=== PATIENT | female | born 1960 | race Caucasian/White ===

== ENCOUNTER 2019-03-17 10:58 | Inpatient (IN) ==
[2019-03-17] MEDS ORDERED: NS 1,000 ML IV ONE (12:37)
[2019-03-17] MEDS ORDERED: ASPIRIN PO ONE (12:37)
--- NOTE | 2019-03-17 13:29 | EKG Report ---
Test Performed on : 03/17/2019 1:04:46 PM Test Reason : stroke symptoms Blood Pressure : / mmHG Vent. Rate : 070 BPM Atrial Rate : 070 BPM P-R Int : 132 ms QRS Dur : 090 ms QT Int : 448 ms P-R-T Axes : 015 018 008 degrees QTc Int : 483 ms Normal sinus rhythm. Prolonged QT Abnormal ECG When compared with ECG of 18-SEP-2018 13:02, No significant change was found Unconfirmed Result
[2019-03-17 13:30] LABS: UR AMPHETAMINES QUAL NONE DETECTED (NONE DETECT); UR BARBITUATES QUAL NONE DETECTED (NONE DETECT); UR BENZODIAZEPIN QUAL NONE DETECTED (NONE DETECT)
[2019-03-17 13:31] LABS: UR CANNABINOIDS QUAL NONE DETECTED (NONE DETECT); UR COCAINE QUAL NONE DETECTED (NONE DETECT); UR METHADONE QUAL NONE DETECTED (NONE DETECT); UR METHAMPHETAMINE QUAL NONE DETECTED (NONE DETECT); UR OPIATES QUAL NONE DETECTED (NONE DETECT); UR OXYCODONE QUAL NONE DETECTED (NONE DETECT); UR PCP QUAL NONE DETECTED (NONE DETECT); UR PROPOXYPHENE QUAL NONE DETECTED (NONE DETECT); UR TCA QUAL NONE DETECTED (NONE DETECT)
[2019-03-17 13:38] LABS: BILIRUBIN URINE NEGATIVE (NEGATIVE); BLOOD URINE NEGATIVE (NEGATIVE); GLUCOSE URINE NEGATIVE (NEGATIVE); KETONE URINE NEGATIVE (NEGATIVE); PROTEIN URINE TRACE mg/dL (NEGATIVE)
[2019-03-17 13:39] LABS: AGAP 15; ALBUMIN 4.2 g/dL (3.5-5.0); ALKALINE PHOSPHATASE 116 U/L (32-104); BUN 19 mg/dL (8-22); CALCIUM 8.5 mg/dL (8.8-10.2); CHLORIDE 107 mmol/L (98-107); CLARITY CLEAR (CLEAR); COLOR YELLOW; COSMO 286; CREATININE 0.7 mg/dL (0.5-0.9); ESTIMATED GFR > 60; GLUCOSE 108 mg/dL (70-104); GOT 23 U/L (10-30); GPT 15 U/L (10-36); LEUKOCYTES URINE TRACE (NEGATIVE); NITRITE URINE NEGATIVE (NEGATIVE); SODIUM 142 mmol/L (136-145); TCO2 20 mmol/L (25-35); TOTAL PROTEIN 6.7 g/dL (6.3-8.3); UROBILINOGEN URINE NORMAL
[2019-03-17 13:42] LABS: BASO# 0.01 X1000 (0.0-0.2); BASO% 0.3 % (0.0-0.8); EOS# 0.31 X1000 (0.0-0.7); EOS% 8.6 % (0.0-10.0); HEMATOCRIT 40.5 % (37.0-47.0); HEMOGLOBIN 13.8 g/dL (12.0-16.0); IMM GRAN# 0.01 X1000 (0.0-0.04); IMM GRAN% 0.3 % (0.0-0.5); LYMPH# 0.98 X1000 (1.2-3.4); LYMPH% 27.3 % (20.5-51.1); MCH 33.3 PG (27-31); MCHC 34.1 g/dL (33-37); MCV 97.6 FL (81-99); MONO% 8.4 % (1.7-9.3); MPV 11.8 FL (7.4-10.4); NEUT# 1.98 X1000 (1.4-6.5); NEUT% 55.1 % (42.2-75.2); PLT 121 X1000 (130-400); RBC 4.15 XMIL (4.2-5.4); RDW 12.4 % (11.5-14.5); WBC 3.59 X1000 (4.8-10.8)
[2019-03-17 13:43] LABS: URINE BACTERIA 1+ /HFP; URINE CAST NONE SEEN /LPF; URINE CRYSTAL NONE SEEN /HPF; URINE EPITHELIAL CELLS <10 /HPF (<10); URINE RBC <10 /HPF (<10); URINE SOURCE CLEAN CATCH; URINE WBC <10 /HPF (<10); URINE YEAST NONE SEEN /HPF
[2019-03-17 13:46] LABS: INR 0.89; PROTIME 12.5 Seconds (11.0-16.0)
[2019-03-17 13:47] LABS: PTT 25.2 Seconds (22.3-41.8)
--- NOTE | 2019-03-17 14:00 | Diag Imaging Result Doc PS360 ---
CHEST-PORTABLE - 03/17/2019 INDICATION: stroke symptoms COMPARISON: 08/26/2018 FINDINGS: There is some faint infiltrate in the right lung base. Heart size and pulmonary vascularity is normal. No pneumothorax or large pleural effusion. IMPRESSION: Faint right basilar infiltrate concerning for pneumonia. Electronically signed by Haris Ledbetter 03/17/2019 1:58 PM
--- NOTE | 2019-03-17 14:25 | Diag Imaging Result Doc PS360 ---
CT HEAD W/O CONTRAST - 03/17/2019 INDICATION: left sided weakness, right facial droop COMPARISON: 05/07/2018 FINDINGS: The ventricles and sulci are normal in size and contour. No intracranial mass or hemorrhage. The skull is intact. The sinuses mastoids and middle ears are clear. IMPRESSION: Negative exam. This exam was performed using automated exposure control, adjustment of mA or kV according to patient size, and/or use of iterative reconstruction technique Electronically signed by Haris Ledbetter 03/17/2019 2:23 PM
[2019-03-17] MEDS ORDERED: ROCEPHIN 1 GM in NS 50 ML IV ONE (14:39)
[2019-03-17] MEDS ORDERED: TUMS EXTRA STRENGTH PO ONE (14:39)
--- NOTE | 2019-03-17 14:45 | PROVIDER DOCUMENTATION ---
This chart was entered by Mary Covarrubias Scribe, acting as scribe for Chip Jc MD. HPI-Neurological Disorder - General Chief Complaint: General Adult Stated Complaint: HEADACHE, CANT EAT Time Seen by Provider: 03/17/19 12:28 Source: patient Allergies/Adverse Reactions: Patient Allergies Allergy/AdvReac Type Severity Reaction Status Date / Time bupropion [From Wellbutrin] Allergy Unknown Verified 09/23/18 15:31 codeine Allergy Unknown Verified 09/23/18 15:31 heparin Allergy Unknown Verified 09/23/18 15:31 hydrocodone Allergy Unknown Verified 09/23/18 15:31 iron Allergy Unknown Verified 09/23/18 15:31 oxycodone HCl * Allergy Unknown Verified 09/23/18 15:31 [From Percocet] oxycodone terephthalate * Allergy Unknown Verified 09/23/18 15:31 [From Percodan] Penicillins Allergy Unknown Verified 09/23/18 15:31 pentazocine [From Talwin] Allergy RASH Verified 03/17/19 12:22 Sulfa (Sulfonamide Allergy Unknown Verified 09/23/18 15:31 Antibiotics) Home Medications: Home Medication List Medication Instructions Recorded Confirmed Last Taken Type Aspirin 81 mg PO DAILY 01/27/16 03/17/19 08/26/18 History Albuterol Sulfate [Ventolin Hfa] 18 gm IH PRN PRN 05/15/18 03/17/19 4 Weeks Ago History ~07/29/18 Furosemide [Lasix] 20 mg PO PRN PRN 05/15/18 03/17/19 08/25/18 History Sertraline [Zoloft] 50 mg PO DAILY 05/15/18 03/17/19 08/25/18 History Tizanidine [Zanaflex] 4 mg PO QHS 05/15/18 03/17/19 08/25/18 History Esomeprazole [Nexium] 1 tab PO PRN PRN 08/26/18 03/17/19 08/25/18 History Sulindac 1 tab PO BID 08/26/18 03/17/19 1 Day Ago History ~08/25/18 - History of Present Illness-Neuro Nature of Presenting Problem: Patient is a 58 year old female who presents to the ED with stroke like symptoms. States headache, difficulty swallowing and weakness to LUE and LLE. Reports symptoms started 5 days ago. History of CVA 15 years ago. Severity: reports: mild Onset/Duration: reports: 5 days ago Timing: reports: still present Context: reports: other (weakness and impaired swallowing) Character of Deficits: reports: new weakness (LUE and LLE), impaired swallowing New weakness or altered sensation location:: reports: LUE, LLE Associated Symptoms: reports: headache Similar Symptoms Previously?: Yes Recently seen or treated by another doctor?: No Review of Systems - Adult - REVIEW OF SYSTEMS - ADULT Constitutional: reports: no symptoms reported. denies: chills, fever, fatique Eyes: reports: no symptoms reported Ears, Nose, Mouth & Throat: reports: see HPI, other (difficulty swallowing). denies: ear pain, nose pain, throat pain Cardiovascular: reports: no symptoms reported Respiratory: reports: no symptoms reported Gastrointestinal: reports: no symptoms reported Genitourinary: reports: no symptoms reported Musculoskeletal: reports: no symptoms reported Integumentary: reports: no symptoms reported Neurological: reports: see HPI, headache/migraines (FOSTER), other (weakness to LUE and LLE). denies: dizziness/vertigo, seizure, syncope Psychiatric: reports: no symptoms reported Endocrine: reports: no symptoms reported Hematologic/Lymphatic: reports: no symptoms reported Allergic/Immunologic: reports: no symptoms reported All Other Systems: Reviewed and Negative Past History - Adult - PAST MEDICAL HISTORY-ADULT Review of Records: reports: Old Records Reviewed, Social history reviewed & non- contributory. Major Childhood Illnesses: reports: denies history Cardiovascular: reports: blood clots, HTN, hyperlipidemia Respiratory: reports: denies history Gastrointestinal: reports: denies history Obstetrical/Gynecological: reports: denies history Genitourinary: reports: kidney disease Musculoskeletal: reports: denies history Neurological: reports: CVA, headaches/migraines Psychiatric: reports: denies history Endocrine/Immune: reports: Diabetes, thyroid disorder Other Conditions: reports: denies history - PRIOR SURGERIES/PROCEDURES Surgical/Procedure History: reports: appendectomy, cholecystectomy, hysterectomy , BTL, , tonsillectomy, hernia repair, gastric bypass - IMMUNIZATION STATUS Childhood Immunizations: See Nurse Assessment Flu Vaccine: See Nurse Assessment - FAMILY HISTORY Family History: reviewed, not pertinent - SOCIAL HISTORY Smoking: denies Substance Use: denies Living Situation: family Physical Exam- Neurological - Physical Exam-Neuro Initial Vital Signs Reviewed: Yes General Appearance: alert, no apparent distress. negative: lethargic HENMT: normocephalic/atraumatic, moist mucous membranes. negative: angioedema Head Injury: no evidence of injury. negative: active bleeding, ecchymosis, lacerations Respiratory: chest non-tender, lungs clear, normal breath sounds. negative: crackles, rales Cardiovascular: normal peripheral pulses, regular rate, rhythm. negative: tachycardia Abdominal Exam: normal bowel sounds, non tender, soft. negative: distended, rigid Extremity: non-tender, normal inspection. 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 negative: abnormal speech Motor/Sensory: weak motor strength LUE, weak motor strength LLE. negative: sensory deficit Neurologic: facial droop (right), focal weakness (LUE and LLE). negative: aphasia, sensory deficit Integumentary: normal color, normal turgor, warm/dry. negative: diaphoresis, ecchymosis, pallor, rash Psych/Mental Status: normal mood/affect, oriented x 3. negative: anxious Progress - PLAN OF CARE/RESULTS Progress/Plan/Lab Results: Vital Signs - 8 hr 03/17/19 11:10 Temperature 98.4 F Pulse Rate 91 H Respiratory Rate 18 Blood Pressure 140/83 O2 Sat by Pulse Oximetry 96 Laboratory Results - last 24 hr 03/17/19 03/17/19 03/17/19 13:00 13:00 13:00 WBC 3.59 L RBC 4.15 L Hgb 13.8 Hct 40.5 MCV 97.6 MCH 33.3 H MCHC 34.1 RDW Std Deviation 12.4 Plt Count 121 L MPV 11.8 H Immature Gran % (Auto) 0.3 Neut % (Auto) 55.1 Lymph % (Auto) 27.3 [place] % (Auto) 8.4 Eos % (Auto) 8.6 Baso % (Auto) 0.3 Immature Gran # (Auto) 0.01 Neut # (Auto) 1.98 Lymph # (Auto) 0.98 L [place] # (Auto) 0.30 Eos # (Auto) 0.31 Baso # (Auto) 0.01 PT 12.5 INR 0.89 PTT (Actin FS) 25.2 Sodium 142 Potassium 4.0 Chloride 107 Carbon Dioxide 20 L Anion Gap 15 BUN 19 Creatinine 0.7 Estimated GFR/1.73 m2 > 60 BUN/Creatinine Ratio 27 Glucose 108 H Calculated Osmolality 286 Calcium 8.5 L Total Bilirubin 0.50 AST 23 ALT 15 Alkaline Phosphatase 116 H Total Protein 6.7 Albumin 4.2 Globulin 3.0 Albumin/Globulin Ratio 2.0 Urine Source Urine Color Urine Clarity Urine pH Ur Specific [place] Urine Protein Urine Ketones Urine Blood Urine Nitrite Urine Bilirubin Urine Urobilinogen Urine Microscopic RBC Urine WBC Urine Microscopic WBC Ur Epithelial Cells Urine Crystals Urine Bacteria Urine Casts Urine Yeast Urine Glucose Urine Opiates Screen Ur Oxycodone Screen Urine Methadone Screen U Propoxyphene Qual Ur Barbituates Screen Ur Tricyclics Screen Ur Phencyclidine Scrn Ur Amphetamines Screen U Methamphetamines Scrn U Benzodiazepines Scrn Urine Cocaine Screen U Cannabinoids Screen 03/17/19 03/17/19 13:00 13:00 WBC RBC Hgb Hct MCV MCH MCHC RDW Std Deviation Plt Count MPV Immature Gran % (Auto) Neut % (Auto) Lymph % (Auto) [place] % (Auto) Eos % (Auto) Baso % (Auto) Immature Gran # (Auto) Neut # (Auto) Lymph # (Auto) [place] # (Auto) Eos # (Auto) Baso # (Auto) PT INR PTT (Actin FS) Sodium Potassium Chloride Carbon Dioxide Anion Gap BUN Creatinine Estimated GFR/1.73 m2 BUN/Creatinine Ratio Glucose Calculated Osmolality Calcium Total Bilirubin AST ALT Alkaline Phosphatase Total Protein Albumin Globulin Albumin/Globulin Ratio Urine Source CLEAN CATCH Urine Color YELLOW Urine Clarity CLEAR Urine pH 5.0 Ur Specific [place] 1.020 Urine Protein TRACE A Urine Ketones NEGATIVE Urine Blood NEGATIVE Urine Nitrite NEGATIVE Urine Bilirubin NEGATIVE Urine Urobilinogen NORMAL Urine Microscopic RBC <10 Urine WBC TRACE A Urine Microscopic WBC <10 Ur Epithelial Cells <10 Urine Crystals NONE SEEN Urine Bacteria 1+ Urine Casts NONE SEEN Urine Yeast NONE SEEN Urine Glucose NEGATIVE Urine Opiates Screen NONE DETECTED Ur Oxycodone Screen NONE DETECTED Urine Methadone Screen NONE DETECTED U Propoxyphene Qual NONE DETECTED Ur Barbituates Screen NONE DETECTED Ur Tricyclics Screen NONE DETECTED Ur Phencyclidine Scrn NONE DETECTED Ur Amphetamines Screen NONE DETECTED U Methamphetamines Scrn NONE DETECTED U Benzodiazepines Scrn NONE DETECTED Urine Cocaine Screen NONE DETECTED U Cannabinoids Screen NONE DETECTED Orders Category Date Time Status Cardiac Monitoring DIRECTED Care 03/17/19 12:35 Active Finger Stick Blood Sugar (ED) DIRECTED Care 03/17/19 12:35 Active Saline Loc NOW Care 03/17/19 12:35 Active CHEST-PORTABLE [RAD] Stat Exams 03/17/19 12:[address] HEAD W/O CONTRAST [CT] Stat Exams 03/17/19 14:00 Completed CBC WITH ELECTRONIC DIFF [HEME] Stat Lab 03/17/19 13:00 Completed COMPREHENSIVE METABOLIC PANEL [CHEM] Stat Lab 03/17/19 13:00 Completed PROTIME WITH INR [COAG] Stat Lab 03/17/19 13:00 Completed PTT [COAG] Stat Lab 03/17/19 13:00 Completed TROPONIN T Stat Lab 03/17/19 13:[address] W/POSS RFLX CULT [URINALYSIS] Stat Lab 03/17/19 13:00 Completed URINE CULTURE [RM] Routine Lab 03/17/19 13:43 Ordered URINE DRUG SCREEN [address] Stat Lab 03/17/19 13:00 Completed 0.9% Sodium Chloride Inj [Ns] 1,000 ml Med 03/17/19 12:37 Discontinued IV 999 mls/hr Aspirin Med 03/17/19 12:37 Discontinued 325 mg PO NOW ONE Calcium Carbonate [Tums Extra Strength] Med 03/17/19 14:39 Once 1,500 mg PO NOW ONE Rocephin 1 gm/Ns IV Now Med 03/17/19 14:39 Ordered CefTRIAXONE [Rocephin] 1 gm 0.9% Sodium Chloride Inj [Ns] 50 ml IV NOW EKG [EKG] Stat Ther 03/17/19 12:35 Draft Result Diagrams: 03/17/19 13:00 03/17/19 13:00 - REASSESSMENT Reassessment #1 Time Reassessed: 14:40 Status: unchanged (given 1000ml ov NS bolus, ASA 325mg po, IV rocephin for UTI, po TUMS) - EKG 1 Time of EKG reading by physician:: 13:04 EKG Read and Signed by:: Chip Jc EKG Interpretation (*Must complete 3 of following elements*): Abnormal Rate: 70 Rhythm: normal sinus rhythm [place]: normal [place] Interval: normal Comments: prolonged QT - XRAY 1 XRAY Study: Chest Impression: See EMR Report ( CHEST-PORTABLE - 03/17/2019 INDICATION: stroke symptoms COMPARISON: 08/26/2018 FINDINGS: There is some faint infiltrate in the right lung base. Heart size and pulmonary vascularity is normal. No pneumothorax or large pleural effusion. IMPRESSION: Faint right basilar infiltrate concerning for pneumonia. Electronically signed by Haris Ledbetter 03/17/2019 1:58 PM 03/17/19 1358 Interpreting Physician: Haris Ledbetter MD Dictated Date/Time: 03/17/19 1357 cc: Chip Jc MD; Reina Del Toro MD) - CT/MRI 1 CT Study: Head Impression: See EMR Report ( CT HEAD W/O CONTRAST - 03/17/2019 INDICATION: left sided weakness, right facial droop COMPARISON: 05/07/2018 FINDINGS: The ventricles and sulci are normal in size and contour. No intracranial mass or hemorrhage. The skull is intact. The sinuses mastoids and middle ears are clear. IMPRESSION: Negative exam. This exam was performed using automated exposure control, adjustment of mA or kV according to patient size, and/or use of iterative reconstruction technique Electronically signed by Haris Ledbetter 03/17/2019 2:23 PM 03/17/19 1423 Interpreting Physician: Haris Ledbetter MD Dictated Date/Time: 03/17/19 1422 cc: Chip Jc MD; Reina Del Toro MD) - CONSULTS/PCP/HOSPITALIST Notification #1 *Consult/PCP/Hospitalist*: Dr. Fiore Time Discussed: 14:32 Reason/Comments: Dr. Jc consulted with Dr. Fiore about patient Consult Disposition: Will see in ED, Admit Departure - Departure Date of Disposition Decision: 03/17/19 Time of Disposition Decision: 14:32 DIAGNOSIS: Cerebrovascular accident (CVA) with left hemiparesis, Hypocalcemia UTI (urinary tract infection) Qualifiers: Urinary tract infection type: acute cystitis Hematuria presence: without hematuria Qualified Code(s): N30.00 - Acute cystitis without hematuria Disposition: ADMITTED INPATIENT 09 Certified Medical Emergency: Emergent Condition: Stable Referrals and Follow-Ups: Reina Del Toro MD [Primary Care Provider] - - Critical Care Note This patient required my direct & personal management of CC.: No Attestation - Physician/ DAMIR Attestation Patient care was provided by Advanced Practice Provider:: No The physician spent face to face time with patient:: Yes Advanced Practice Provider documentation review:: Supervising physician onsite and consulted in the evaluation and care of this patient. The physician did have a face to face encounter with the patient. - NIH Stroke Scale Level of Consciousness: 0-Alert LOC Questions (ask month and age): 0-Answers Both Correctly LOC Commands (ask to open & close eyes;make a fist, let go): 0-Obeys Both Correctly Best Gaze (horizontal eye movement): 0-Normal Visual (use finger movement, counting or visual threat): 0-No Visual Loss Facial Palsy (show teeth or raise eyebrows & close eyes tght: 1-Minor Paralysis Motor Function-left arm: 1-Drift Motor Function-right arm: 0-Normal Motor Function-left le-Drift Motor Function-right le-Normal Limb Ataxia(twimfn-[id number]-[id number], or heel to zaman): 0-No Ataxia Sensory(pin prick to face,arms,trunk,legs-compare side/side): 0-No Ataxia Best Language(name item/read sentence.Ex-Down to Earth): 0-No Aphasia Dysarthria(Pt read words or say words Ex.Mama,Tip-Top,Thanks: 0-Normal Articulation Extinction and Inattention: 0-Normal NIH Total Score: 3 Stroke tPA Guidelines - Inclusion Criteria for IV tPA 18 years old or older: Yes Ischemic stroke with measurable deficit: Yes Onset <3 hours ago *OR* 3-4.5 hours ago: No - Exclusion Criteria for IV tPA Evidence of intracranial hemorrhage on CT: No Presentation suggest SAH: No CT reveals defined area of hypodensity: No Evidence of AVM, neoplasm, aneurysm: No Seizure at stroke onset: No Active internal bleeding or acute trauma: No Platelet Count Less Than 100,000: No Heparin Within Last 48 HRS (PTT >Lab normal limits): No INR > 1.7 (warfarin use): No Use IIB/IIIA inhibitors within 24 hours: No Serious Head Trauma Within Last 3 Months: No Arterial Puncture Within Last 7 Days: No Lumbar Puncture Within Last 7 Days: No Repeated systolic Blood Pressure >185 or Diastolic >110: No - Additional Exclusion Criteria for IV tPA Currently on Coumadin: No Patient older than 80: No Prior stroke and diabetes: No Baseline NIHSS score > 25: No - Relative Contraindications to IV tPA CT reveals extensive area of infarct (>1/3 MCA territory): No Minor or rapidly improving stroke symptoms: No Major Surgery or Serious Trauma In Previous 14 Days: No AMI within 3 months: No Gastrointestinal or Urinary Tract hemorrhage in Past 21 Days: No Post - AMI pericarditis: No Blood Glucose Less Than 50 mg/dl or Greater Than 400 mg/dl: No - Consultation tPA risks/benefits explained to:: family Candidate for:: NOT A CANDIDATE Reason not a candidate:: symptoms stable since last week This chart was documented by the indicated scribe, (Mary Covarrubias Scribe) and accurately reflects the services I performed and decisions made by Hosea chahal Kent A., MD, as attested by the provider's signature.
[2019-03-17] MEDS ORDERED: NEXIUM PO PRN (17:32)
[2019-03-17] MEDS ORDERED: VENTOLIN HFA INH PRN (17:32)
[2019-03-17] MEDS ORDERED: ZOFRAN IV PRN (17:32)
[2019-03-17] MEDS: DUONEB (A & A) INH SCH ×3 (17:55→22:50)
[2019-03-17] MEDS ORDERED: ZITHROMAX 500 MG/NS 500 MG/250 ML IVPB IV SCH (18:00)
[2019-03-17] MEDS ORDERED: PNEUMOVAX 23 IM ONE (18:00)
[2019-03-17] MEDS: NS 1,000 ML IV SCH (18:49)
--- NOTE | 2019-03-17 19:32 | Extremity Venous Study ---
EXAM: Carotid Ultrasound INDICATION: tia vs cva TECHNIQUE: COMPARISON: None. FINDINGS: Right: There is no significant atherosclerotic disease involving the right carotid system on grayscale images. The peak systolic velocity measures 72, 78, 67, 61, 86, 73, and 74 cm/s at the right subclavian artery, CCA, bifurcation, proximal ICA, mid ICA, distal ICA, and ECA, respectively. There is antegrade flow in the vertebral artery. The carotid ratio is 1.10. Left: There is no significant atherosclerotic disease involving the left carotid system on grayscale images. The peak systolic velocity measures 112, 80, 62, 43, 44, 93, and 61 cm/s at the left subclavian artery, CCA, bifurcation, proximal ICA, mid ICA, distal ICA, and ECA, respectively. There is antegrade flow in the vertebral artery. The carotid ratio is 1.16. IMPRESSION: No evidence of hemodynamically significant carotid stenosis by Doppler. Electronically signed by Terrell Chaidez 03/17/2019 7:30 PM
[2019-03-17] MEDS: NON-FORMULARY MED PO SCH (20:07)
--- NOTE | 2019-03-17 20:40 | HISTORY AND PHYSICAL ---
PRIMARY CARE PHYSICIAN: Dr. Reina Del Toro. CHIEF COMPLAINT: Headache, difficulty swallowing, and weakness on her left side for the past 5 days that has progressively worsened. HISTORY OF PRESENTING ILLNESS: This is a 58-year-old female who presents to [facility] ER with complaints of headache, difficulty swallowing, weakness to the left side for the past 5 days that had progressively worsened. Workup in the ER showed a head CT that was negative, a chest x-ray that showed a faint right basilar infiltrate concerning for pneumonia. Laboratory data was fairly unremarkable, but she will be admitted at this time for further evaluation and treatment. PAST MEDICAL HISTORY: CVA, blood clots, hypertension, hyperlipidemia, chronic kidney disease, headaches, diabetes type 2 and hypothyroidism. PAST SURGICAL HISTORY: Appendectomy, cholecystectomy, section, bilateral tubal ligation, hysterectomy, tonsillectomy, hernia repair and a gastric bypass. FAMILY HISTORY: Reviewed and noncontributory. SOCIAL HISTORY: She currently lives with family. Denies any tobacco, alcohol or illicit drug use. ALLERGIES: To bupropion, codeine, heparin, hydrocodone, iron, oxycodone, penicillin, Talwin, and sulfa. HOME MEDICATIONS: We will need to obtain a current list and reconcile review and restart as appropriate. We will place an order for nursing to update and confirm. LABORATORY DATA: Showed a white blood cell count of 3.59, hemoglobin of 13.8, hematocrit of 40.5, platelets 121,000. PT and INR of 12.5 and 0.89. Sodium 142, potassium 4.0, chloride 107, CO2 20, BUN of 19, creatinine 0.7, glucose 108. Urinalysis was negative except for 1+ bacteria. Urine drug screen showed none detected. IMAGING: Chest x-ray showed a faint right basilar infiltrate concerning for pneumonia, an EKG with normal sinus rhythm at [address] of the head that was negative. REVIEW OF SYSTEMS: She denied any fever, chills, blurred vision, dizziness. She had a headache, some mild difficulty swallowing even though she is eating a ham sandwich currently without difficulty noted at this time. Denied any chest pain, coughing, shortness of breath. Denied any abdominal pain, constipation, diarrhea, burning or hurting with urination, and she has some weakness to her left upper and left lower extremity. PHYSICAL EXAMINATION: VITAL SIGNS: On arrival, she had a temperature of 98.4 degrees, pulse 91, respirations 18, blood pressure 140/83, saturating 96% on room air. GENERAL: This is a 58-year-old female who is lying in the bed and answers questions appropriately. HEENT: Normocephalic, atraumatic. Normal ENT inspection. Oropharynx and nares are clear. EYES: Pupils are equal, round, and reactive to light and accommodation. Extraocular movements are intact. NECK: Normal inspection. Normal range of motion. LUNGS: Clear to auscultation bilaterally with equal lung expansion and chest wall movement. HEART: With regular rate and rhythm. No murmurs, rubs, or gallops. ABDOMEN: Soft, nontender, nondistended. Bowel sounds are present x4 quadrants. MUSCULOSKELETAL: She had 5/5 strength to her right upper and lower extremity, 3/5 strength to her left upper and lower extremity. NEUROLOGICAL: The cranial nerves 2 through 12 are grossly intact except for weakness to her left upper and lower extremity and some mild difficulty swallowing. ASSESSMENT: 1. Right lower lobe pneumonia. 2. Transient ischemic attack versus cerebrovascular accident. 3. Diabetes type 2. 4. Hypothyroidism. PLAN: She will be admitted to the medical unit, placed on telemetry. We will do an echocardiogram, carotid Dopplers, MRI of the brain with and without contrast. We will place on aspirin 325 mg p.o. daily. We will place on Rocephin 1 gram IV q.24, azithromycin 500 IV q.24, DuoNeb q.4 hours. She did have a mild low calcium at 8.5, corrected at 8.3. In the emergency room, she was given calcium carbonate 1500 mg p.o. x1. She was given a liter of normal saline in the emergency room, and we will check a lipid profile and further orders after seen by attending. Dictated by LARRY Cortez for Dwain Fiore MD cc: LARRY Cortez MD Martha Read
[2019-03-17] MEDS ORDERED: ZANAFLEX PO SCH (21:00)
[2019-03-18] MEDS: DUONEB (A & A) INH SCH ×6 (03:21→23:21)
[2019-03-18] MEDS ORDERED: TYLENOL PO PRN (06:16)
[2019-03-18 06:32] LABS: BASO# 0.01 X1000 (0.0-0.2); BASO% 0.5 % (0.0-0.8); EOS# 0.12 X1000 (0.0-0.7); EOS% 6.5 % (0.0-10.0); HEMATOCRIT 32.8 % (37.0-47.0); HEMOGLOBIN 10.9 g/dL (12.0-16.0); IMM GRAN# 0.01 X1000 (0.0-0.04); IMM GRAN% 0.5 % (0.0-0.5); LYMPH# 0.59 X1000 (1.2-3.4); LYMPH% 31.9 % (20.5-51.1); MCH 32.8 PG (27-31); MCHC 33.2 g/dL (33-37); MCV 98.8 FL (81-99); MONO# 0.18 X1000 (0.11-0.59); MONO% 9.7 % (1.7-9.3); MPV 11.3 FL (7.4-10.4); NEUT# 0.94 X1000 (1.4-6.5); NEUT% 50.9 % (42.2-75.2); PLT 121 X1000 (130-400); RBC 3.32 XMIL (4.2-5.4); RDW 12.3 % (11.5-14.5); WBC 1.85 X1000 (4.8-10.8)
[2019-03-18 06:35] LABS: AGAP 12; BUN 12 mg/dL (8-22); CALCIUM 8.1 mg/dL (8.8-10.2); CHLORIDE 110 mmol/L (98-107); COSMO 287; CREATININE 0.6 mg/dL (0.5-0.9); ESTIMATED GFR > 60; GLUCOSE 101 mg/dL (70-104); POTASSIUM 3.6 mmol/L (3.5-5.1); SODIUM 144 mmol/L (136-145); TCO2 22 mmol/L (25-35)
[2019-03-18] MEDS ORDERED: NEXIUM PO PRN (06:45)
--- NOTE | 2019-03-18 07:39 | HISTORY AND PHYSICAL ---
ADDENDUM: Patient seen and examined by myself. Full note dictated and discussed with nurse practitioner. She is a 58-year-old female who presents to the hospital with headache and difficulty swallowing. Notes that the symptoms started 5 days ago. They have improved some, but have not completely resolved. Therefore, we are going to admit her to the hospital for a complete workup. cc: Dwain Fiore MD
[2019-03-18] MEDS ORDERED: ASPIRIN PO SCH (09:00)
[2019-03-18] MEDS: NS 1,000 ML IV SCH (09:53)
[2019-03-18] MEDS: NON-FORMULARY MED PO SCH (09:54)
[2019-03-18] MEDS: ZOLOFT PO SCH (09:54)
[2019-03-18] MEDS ORDERED: SODIUM CHLORIDE 0.9% INJ PRN (11:24)
[2019-03-18] MEDS: PHENERGAN IV PRN (11:46)
--- NOTE | 2019-03-18 12:20 | ECHO REPORT ---
ORDER DATE: 03/17/2019 INDICATION: TIA. FINDINGS: 1. The right atrium appears normal size at 2.8 cm. 2. Mild tricuspid regurgitation. RV systolic pressure of 39. 3. Normal RV size and systolic function. 4. Mild pulmonic insufficiency. 5. Normal left atrial size with a dimension of 3.4 cm and a volume index of 22. 6. No mitral prolapse. Mild mitral regurgitation. No mitral stenosis. 7. Normal LV size, end-diastolic dimension of 4.5 cm. Normal wall thicknesses with a posterior and interventricular septal wall thickness of 0.9 cm each. Normal LV systolic function. Estimated EF is 60% with normal wall motion. 8. The aortic valve opens well. It is trileaflet. No evidence of stenosis or insufficiency. 9. The aorta appears normal on visualized segments. 10. No pericardial effusion seen. cc: MD Stella Lee CRNP
[2019-03-18] MEDS ORDERED: PROTONIX IV SCH (14:45)
[2019-03-18] MEDS: TORADOL IV PRN (14:45)
[2019-03-18] MEDS ORDERED: SODIUM CHLORIDE 0.9% INJ SCH (14:45)
[2019-03-18] MEDS ORDERED: ROCEPHIN 1 GM in NS 50 ML IV SCH (15:00)
--- NOTE | 2019-03-18 15:22 | Diag Imaging Result Doc PS360 ---
EXAM: MRI BRAIN W/WO CONTRAST - 03/17/2019 HISTORY: TIA vs. CVA TECHNIQUE: MRI brain without and with contrast. Images are obtained prior to and following gadolinium ministration. COMPARISON: 03/17/2019 CT head without contrast FINDINGS: There is no evidence of intracranial hemorrhage, mass effect, midline shift, or hydrocephalus. There are mild chronic microvascular ischemic changes. The diffusion weighted images show no areas of restricted diffusion (no evidence of acute infarct). There is no abnormal enhancement identified. There is mild cerebellar tonsillar ectopia noted compatible with range of normal variation. IMPRESSION: Mild chronic microvascular ischemic changes. No visible acute intracranial abnormality. No evidence of acute infarct. Electronically signed by Juan Ramon Novoa 03/18/2019 3:20 PM
[2019-03-18] MEDS: FLAGYL 500 MG/NS 500 MG/100 ML IVPB IV SCH ×2 (15:58→21:50)
--- NOTE | 2019-03-18 16:08 | PROGRESS NOTE ---
DATE: 03/18/2019 SUBJECTIVE: She still has some protracted dysphagia, but it is not clear that this is not a primary GI issue. Her main complaints are headache and dysphagia and she has had EGDs in the past with stretching. OBJECTIVE: Vital Signs: Blood pressure 121/70, heart rate 91, respiratory rate 22, temperature 98.6 degrees. Cardiovascular: Regular rate and rhythm. Pulmonary: Bilateral breath sounds clear to auscultation. Gastrointestinal: Abdomen soft, nontender, nondistended. Bowel sounds are positive. LABORATORY DATA: White count is 1.8, hemoglobin and hematocrit 10 and 32, platelets 121,000. Basic was normal. LDL 106. MRI was negative. Carotid was negative and echocardiogram showed an EF of 60% with otherwise no other major abnormalities. PROBLEM LIST: 1. Transient ischemic attack versus cerebrovascular accident versus just a complicated migraine. She is still having some dysphagia, so we will get a speech evaluation, possibly modified barium and follow but currently recommending persistent NPO but she has not had a large stroke to have caused her degree of dysphagia. This may be more gastrointestinal related. 2. Right lower lobe pneumonia. She is on Rocephin and Zithromax. We will continue breathing treatments. There is certainly a concern over aspiration type. I think we may switch her to Zosyn if she is not bartlett allergic, which she is so she will do Levaquin and Flagyl. DISPOSITION: Just pending her clinical status. cc: Noam Shannon MD
[2019-03-18] MEDS: LEVAQUIN 500 MG/D5W 500 MG/100 ML IVPB IV SCH (19:02)
[2019-03-19] MEDS: TORADOL IV PRN ×2 (01:04→09:23)
[2019-03-19] MEDS: PHENERGAN IV PRN (02:06)
[2019-03-19] MEDS: DUONEB (A & A) INH SCH ×7 (02:50→23:46)
[2019-03-19] MEDS: FLAGYL 500 MG/NS 500 MG/100 ML IVPB IV SCH ×4 (03:06→20:45)
[2019-03-19] MEDS: LOVENOX SUBQ SCH (05:03)
[2019-03-19] MEDS ORDERED: SODIUM CHLORIDE 0.9% INJ SCH (06:30)
[2019-03-19] MEDS: NS 1,000 ML IV SCH (07:26)
[2019-03-19 07:41] LABS: BASO% 0.3 % (0.0-0.8); EOS% 3.4 % (0.0-10.0); HEMATOCRIT 37.5 % (37.0-47.0); HEMOGLOBIN 12.2 g/dL (12.0-16.0); LYMPH% 17.8 % (20.5-51.1); MCH 32.5 PG (27-31); MCHC 32.5 g/dL (33-37); MPV 11.4 FL (7.4-10.4); NEUT# 2.16 X1000 (1.4-6.5); NEUT% 72.5 % (42.2-75.2); PLT 126 X1000 (130-400); RBC 3.75 XMIL (4.2-5.4); RDW 12.3 % (11.5-14.5); WBC 2.98 X1000 (4.8-10.8)
[2019-03-19 07:42] LABS: BASO# 0.01 X1000 (0.0-0.2); LYMPH# 0.53 X1000 (1.2-3.4); MONO# 0.18 X1000 (0.11-0.59)
[2019-03-19 07:59] LABS: AGAP 11; BUN 9 mg/dL (8-22); CALCIUM 8.4 mg/dL (8.8-10.2); CHLORIDE 110 mmol/L (98-107); CHOLESTEROL 171 mg/dL (0-200); COSMO 287; CREATININE 0.6 mg/dL (0.5-0.9); ESTIMATED GFR > 60; GLUCOSE 93 mg/dL (70-104); HDL 58 mg/dL (45-65); LDL 95 mg/dL; POTASSIUM 3.7 mmol/L (3.5-5.1); SODIUM 145 mmol/L (136-145); TCO2 24 mmol/L (25-35); TRIGLYCERIDES 88 mg/dL (35-135); VLDL 18 mg/dL
[2019-03-19] MEDS: ASPIRIN PR SCH (09:07)
[2019-03-19] MEDS: ZOLOFT PO SCH (11:14)
--- NOTE | 2019-03-19 14:40 | PROGRESS NOTE ---
DATE: 03/19/2019 SUBJECTIVE: Patient has no major complaints. OBJECTIVE: Blood pressure is 138/85, heart rate 91, respiratory 18, temperature 98.8 degrees 97% on room air.Cardiovascular: Regular rate and rhythm. Pulmonary: Bilateral breath sounds. Clear to auscultation. GI: Soft, nontender, nondistended. Bowel sounds are positive. LABORATORY DATA: White count is 2.9, hemoglobin and hematocrit 12 and 37, platelets 126,000. Basic was negative. LDL is 95. PROBLEM LIST: 1. Transient ischemic attack. We will continue low-dose aspirin and follow. Her speech has completely resolved. Unclear if this was transient ischemic attack. It was certainly not stroke and I am still suspicious she may have some degree of esophageal stricture, so we will continue to monitor. 2. Pneumonia. We will continue her medications and follow closely. 3. Dysphagia. We will get an upper gastrointestinal series tomorrow, make sure she has got close follow up with Dr. Contreras and we will continue to follow. cc: Noam Shannon MD
[2019-03-19] MEDS: LEVAQUIN 500 MG/D5W 500 MG/100 ML IVPB IV SCH (16:30)
[2019-03-19] MEDS: DIFLUCAN PO SCH (16:36)
[2019-03-20] MEDS: FLAGYL 500 MG/NS 500 MG/100 ML IVPB IV SCH ×2 (04:05→11:23)
[2019-03-20] MEDS: DUONEB (A & A) INH SCH ×2 (04:24→07:57)
[2019-03-20 05:40] LABS: BASO# 0.01 X1000 (0.0-0.2); BASO% 0.4 % (0.0-0.8); EOS# 0.19 X1000 (0.0-0.7); EOS% 7.6 % (0.0-10.0); HEMATOCRIT 36.7 % (37.0-47.0); LYMPH% 28.1 % (20.5-51.1); MCH 32.7 PG (27-31); MCHC 32.7 g/dL (33-37); MONO# 0.22 X1000 (0.11-0.59); MONO% 8.8 % (1.7-9.3); MPV 10.5 FL (7.4-10.4); NEUT# 1.37 X1000 (1.4-6.5); NEUT% 55.1 % (42.2-75.2); PLT 106 X1000 (130-400); RBC 3.67 XMIL (4.2-5.4); RDW 12.6 % (11.5-14.5); WBC 2.49 X1000 (4.8-10.8)
[2019-03-20] MEDS: LOVENOX SUBQ SCH (05:46)
[2019-03-20 05:56] LABS: AGAP 10; ALBUMIN 3.7 g/dL (3.5-5.0); ALKALINE PHOSPHATASE 94 U/L (32-104); BUN 14 mg/dL (8-22); CALCIUM 8.4 mg/dL (8.8-10.2); CHLORIDE 109 mmol/L (98-107); COSMO 282; CREATININE 0.6 mg/dL (0.5-0.9); ESTIMATED GFR > 60; GLUCOSE 98 mg/dL (70-104); GOT 17 U/L (10-30); GPT 12 U/L (10-36); POTASSIUM 3.6 mmol/L (3.5-5.1); SODIUM 141 mmol/L (136-145); TCO2 22 mmol/L (25-35); TOTAL PROTEIN 5.6 g/dL (6.3-8.3)
--- NOTE | 2019-03-20 09:26 | Diag Imaging Result Doc PS360 ---
EXAM: GI SERIES WITH BA SWALLOW - 03/20/2019 HISTORY: dysphagia TECHNIQUE: Single contrast GI series with barium swallow. The fluoroscopy time is one minute 43 seconds. The radiation doses 1263.5 cGy centimeters square. There are 37 images obtained. COMPARISON: None. FINDINGS: Rapid sequence imaging of the hypopharynx/cervical esophagus show mild extrinsic impression upon the posterior margin of the cervical esophagus by anterior cervical spine osteophytes at C5-6 and C6-7. There is no esophageal mass or stricture identified. There is no esophageal inflammation identified. There are postsurgical changes of gastric bypass. There is some pooling of barium in the gastric pouch and proximal jejunum, but there is no stricture, ulcer crater, or other discrete abnormality seen. The visualized proximal jejunum is otherwise unremarkable. IMPRESSION: Mild extrinsic impression upon posterior margin of cervical esophagus by anterior cervical spine osteophytes at C5-6 and C6-7. No visible esophageal lesion otherwise. Unremarkable post gastric bypass changes except for some pooling of barium in the gastric pouch and proximal jejunum. Electronically signed by Juan Ramon Novoa 03/20/2019 9:24 AM
[2019-03-20] MEDS: ZOLOFT PO SCH (11:23)
[2019-03-20] MEDS: DIFLUCAN PO SCH (11:23)
[2019-03-20] MEDS: ASPIRIN PR SCH (11:23)
[2019-03-20 12:34] VITALS: BP 149/81
--- NOTE | 2019-03-21 04:57 | DISCHARGE SUMMARY ---
ADMISSION DATE: 03/19/2019 DISCHARGE DATE: 03/20/2019 PRIMARY CARE PHYSICIAN: Dr. Reina Del Toro. ADMISSION DIAGNOSES: 1. Right lower lobe pneumonia. 2. Transient ischemic attack versus cerebrovascular accident. 3. Diabetes type 2. 4. Hypothyroidism. DISCHARGE DIAGNOSES: 1. Transient ischemic attack. 2. Right lower lobe pneumonia improved. 3. Some dysphagia. SUMMARY OF FINDINGS: This is a 58-year-old female who presented with complaints of headache, difficulty swallowing and weakness to her left side over the past 5 days prior to arriving that progressively worsened. Her CT of the head was negative. Chest x-ray showed a faint right basilar infiltrate concerning for pneumonia so she was admitted. Once she arrived to the floor, stated that she was having some difficulty swallowing and was coughing and choking when eating so we held her NPO. We did a brain MRI on 03/17/2019 that showed no visible acute intracranial abnormality. No evidence of acute infarct. Mild chronic microvascular ischemic changes. We did a carotid Doppler study that showed no evidence of hemodynamically significant carotid stenosis by Doppler. Echocardiogram showed an ejection fraction of 60% with normal LV systolic function. We did have speech therapy to come see the patient. She was noted to have some oral dysphagia, but she does state that she has had her esophagus stretched in the past. We did do an upper GI barium swallow that showed mild extrinsic impression upon posterior margin of cervical esophagus by anterior cervical spine osteophytes at C5-7 and C6-7 with no visible esophageal lesions. Otherwise, unremarkable post gastric bypass changes except for some pooling of barium in the gastric pouch and proximal jejunum. It is felt that she can safely be discharged home. She is going to need to follow up with Dr. Contreras her GI doctor closely, and may even need another esophageal stretch, but he will make that decision at that time. DISCHARGE MEDICATIONS: 1. Ventolin inhaler p.r.n. 2. Zoloft 50 mg p.o. at bedtime. 3. Aspirin 81 mg p.o. daily. 4. Benadryl 25 mg p.o. daily. 5. Nexium 40 mg p.o. at bedtime. 6. Lasix 20 mg p.o. daily. 7. Melatonin 5 mg p.o. at bedtime. 8. Omeprazole 40 mg p.o. b.i.d. 9. Sulindac 150 mg 1 p.o. b.i.d. 10. Zanaflex 4 mg p.o. at bedtime. FOLLOW-UP: She will need to follow up with her primary care physician in the next 1 to 2 weeks, and call the office for an appointment. She will also need to follow up with Dr. Ben BURT in the next 1 to 2 weeks. All discharge instructions have been reviewed with the patient, and she verbalized understanding. TIME SPENT: This is a 35 minute discharge. Dictated by LARRY Cortez for Noam Shannon MD cc: LARRY Cortez MD Martha Read Babu Kantamneni, MD
--- NOTE | 2019-03-21 19:06 | DISCHARGE SUMMARY ---
ADMISSION DATE: 03/19/2019 DISCHARGE DATE: 03/20/2019 ADDENDUM: DISCHARGE DIAGNOSES: 1. Transient ischemic attack. 2. Pneumonia, left lower lobe. 3. Dysphagia, which is likely gastroesophageal reflux disease. PLAN: The patient is doing well, discharge. She will go home on a course of Ceftin q.12 for 7 days and Prilosec 40 b.i.d., and follow up with her PCP, who is Dr. Contreras. cc: Noam Shannon MD
== END 2019-03-20 13:20 | disposition home or self-care (01) | DRG 69 ==
LOC: P.ED 10:58 → P.MEDSURG 10:58 → SUATTDRO 15:31
PROVIDERS: ATTEND Internal Medicine